=== PATIENT | male | born 1950 | race Caucasian/White ===

== ENCOUNTER 2016-05-16 18:23 | Emergency (ER) | payer OTHER ==
[2016-05-16 19:00] VITALS: TEMP 98.1
--- NOTE | 2016-05-16 21:19 | EDPHY ---
H & P Stated Complaint: fell on porch, hit back of head, back and shoulder pain HPI/ROS: HPI CHIEF COMPLAINT: Fall HISTORY OF PRESENT ILLNESS: This patient is a 66-year-old male, significant past medical history for hypertension, he presents to the emergency room after he slipped on ice on his back deck he landed directly on his back with a head strike. No LOC. This happened approximately 3.5 hours ago. Does complain of a headache. does not have any significant midline cervical spine pain he does complain of back pain across both of his scapulas and midline thoracic spine. Denies LOC denies chest pain denies shortness of breath denies extremity pain. Describes pain as 3/10 headache lies throbbing. No photophobia no nausea no vomiting. Past Medical History: Hypertension Past Surgical History: Multiple orthopedic surgeries including both ankles Social History:Occasional alcohol use, occasional marijuana, denies illicit drugs or tobacco products Family History: noncontributory ROS REVIEW OF SYSTEMS: A comprehensive 10 point review of systems is otherwise negative aside from elements mentioned in the history of present illness. Exam Constitutional appears well nontoxic, GCS 15, triage nursing summary reviewed , vital signs reviewed, awake/alert. Eyes normal conjunctivae and sclera, EOMI, PERRLA. HENT head/neck: No midline cervical spine pain, no step-offs, no crepitus normal inspection, atraumatic, moist mucus membranes, no epistaxis, neck supple / no meningismus, no raccoon eyes. Respiratory clear to auscultation bilaterally, normal breath sounds, no respiratory distress, no wheezing. Cardiovascular rate normal, regular rhythm, no murmur, no edema, distal pulses normal. Gastrointestinal soft, non-tender, no rebound, no guarding, normal bowel sounds, no distension, no pulsatile mass. Genitourinary no CVA tenderness. Musculoskeletal back exam: Tender palpation midline thoracic spine, no step- offs, no crepitus, tender palpation over both scapula, no obvious signs of trauma specifically no swelling, ecchymosis, full range of motion, no calf swelling, no tenderness of extremities, no meningismus, good pulses, neurovascularly intact. Skin pink, warm, & dry, no rash, skin atraumatic. Neurologic awake, alert and oriented x 3, AAOx3, moves all 4 extremities equally, motor intact, sensory intact, CN II-XII intact, normal cerebellar, normal vision, normal speech. Psychiatric normal mood/affect. Heme/Lymph/Immune no lymphadenopathy. Differential Diagnosis: Includes but is not limited to in a particular order, concussion, closed-head injury, intracranial bleed, skull fracture, traumatic subarachnoid, epidural, subdural, cervical spine injury, thoracic spine injury, chest wall injury, rib fracture, pneumothorax Medical Decision Making: patient had a CT scan of his head to rule out significant trauma, CT scan of his cervical spine, chest x-ray two view, thoracic spine x-ray. He does not anything for pain except Motrin. I have ordered him 800 mg ibuprofen. Re-evaluation: CT scan of the head without IV contrast. The results of the study are negative for acute traumatic injury. The study was read by Dr. Pizarro. I viewed the images myself on the PACS system. CT scan of the cervical spine without IV contrast The results of the study are negative for acute traumatic injury. The study was read by Dr. Pizarro. I viewed the images myself on the PACS system. ED x-ray chest two view for trauma negative for acute cardiopulmonary disease. Specifically no trauma. ED x-ray thoracic spine for trauma negative thoracic spine fracture. 2233: I went over this patient's results of his CT scan of the head, and cervical spine his x-ray of his chest an x-ray of his T-spine. These are all unremarkable for significant trauma. I will prescribe him ibuprofen for home. He does understand if he has any worsening symptoms return emergency room this includes worsening headache, neck pain, fever, vomiting. 2237: I have ordered this patient a [place] as he does have worsening crease and pain. X-rays and CTs review. I explained to the patient there is no acute traumatic injury identified. I will prescribe ibuprofen for home, [place] for home, Valium for home. Patient understands these medications can make him sleepy should not combine narcotic or Valium together. Do not drink alcohol with this. He understands return emergency room if there is any worsening symptoms questions or concerns. Source: Patient - Personal History Current Tetanus/Diphtheria Vaccine: Yes Current Tetanus Diphtheria and Acellular Pertussis (TDAP): Yes - Medical/Surgical History Hx Asthma: No Hx Chronic Respiratory Disease: No Hx Diabetes: No Hx Cardiac Disease: Yes Hx Renal Disease: No Hx Cirrhosis: No Hx Alcoholism: No Hx HIV/AIDS: No Hx Splenectomy or Spleen Trauma: No Other PMH: knee sx, ankle sx, eye sx, htn, hyperlipedemia - Social History Smoking Status: Never smoked Constitutional: Initial Vital Signs Temperature (C) 36.7 C 05/16/16 18:58 Heart Rate 70 05/16/16 18:58 Respiratory Rate 18 05/16/16 18:58 Blood Pressure 160/101 H 05/16/16 18:58 O2 Sat (%) 92 05/16/16 18:58 O2 Delivery Mode Room Air Allergies/Adverse Reactions: amoxicillin [Amoxicillin] Allergy (Verified 05/16/16 18:57) epinephrine Allergy (Verified 05/16/16 18:57) hydralazine Allergy (Verified 05/16/16 18:57) prochlorperazine edisylate [From Compazine] Allergy (Verified 05/16/16 18:57) prochlorperazine maleate [From Compazine] Allergy (Verified 05/16/16 18:57) Home Medications: Medication Instructions Recorded Amlodipine Bes/Olmesartan Med 05/16/16 Diazepam [Valium 5 MG (*)] 5 mg PO TID PRN #7 tab 05/16/16 Hydrocodone/APAP 5/325 [[place] 1 - 2 tab PO Q4H PRN #10 tab 05/16/16 5/325] Ibuprofen [Motrin (*)] 800 mg PO Q6-8PRN #7 tab 05/16/16 Medical Decision Making - Data Points Medications Given: Discontinued Medications Ibuprofen (Motrin) 800 mg PO EDNOW ONE Stop: 05/16/16 21:24 Last Admin: 05/16/16 21:38 Dose: 800 mg Departure - Departure Disposition: Home, Routine, Self-Care Clinical Impression: Multiple contusions Fall Qualifiers: Encounter type: initial encounter Qualifier Code: (W19.XXXA) Unspecified fall, initial encounter Condition: Good Instructions: Contusion in Adults (ED) Additional Instructions: 1. Stay well-hydrated. 2. return to the emergency room if he develops any worsening symptoms questions or concerns. 3. Take ibuprofen for pain control. 4. For severe pain you can take the narcotic pain medicine. Also be having muscle spasm can take Valium I do not recommend any combine the [place] and Valium. Do not drink alcohol while taking these medications Referrals: Amadou Arevalo MD [Primary Care Provider] - As per Instructions Prescriptions: Ibuprofen [Motrin (*)] 800 mg PO Q6-8PRN #7 tab Hydrocodone/APAP 5/325 [[place] 5/325] 1 - 2 tab PO Q4H PRN #10 tab PRN Reason: Pain, Moderate Diazepam [Valium 5 MG (*)] 5 mg PO TID PRN #7 tab PRN Reason: Spasms
[2016-05-16] MEDS ORDERED: IBUPROFEN 200 MG TAB PO ONE (21:23)
--- NOTE | 2016-05-16 22:03 | DX ---
PA and Lateral Chest Clinical Indications: Chest pain. History of trauma. Findings: The lungs are clear. Hilar and mediastinal contours are normal. There is no pneumothorax. O sseous structures are intact. The heart size and pulmonary vascularity are normal. Impression: Chest negative for acute posttraumatic sequela.
--- NOTE | 2016-05-16 22:35 | CT ---
CT Scan of the Head (Without Contrast) History: Trauma. Altered mental status in a 66-year-old male following closed head injury. Technique: Axial images were obtained from the base to the vertex with images reconstructed at 1.25 m m thickness. The examination was reviewed on the workstation at bone and soft tissue settings. Dose r eduction techniques were utilized. Findings: There is no midline shift, hydrocephalus, parenchymal or subarachnoid bleeding. No extraaxi al fluid collection is seen. There are no findings to suggest acute cortical ischemia. Bone window ev aluation does not show evidence of a skull fracture or pneumocephalus. The paranasal sinuses and mast oids are normally aerated. There is minimal mucous membrane thickening seen involving the floors of t he maxillary sinuses bilaterally. Impression: Negative noncontrast CT of the head with no intracranial posttraumatic sequela identified . CT Cervical Spine Without Contrast History: Trauma. Neck pain following a fall. Technique: Multislice helical CT through the cervical spine without contrast from the skull base to T 1. Soft tissue and bone evaluation is performed. Sagittal and coronal reconstructions are obtained an d reviewed. Dose reduction techniques were utilized. Findings: Cervical alignment is anatomic. No fracture or dislocation is identified. The relationship between skull base and C1 is normal. The C1-C2 articulation is normal. The odontoid process is normal . The cervical thoracic junction is normal. Soft tissue window evaluation does not show evidence of e pidural or prevertebral hematoma. Multilevel degenerative changes are noted with disk space loss in vertebral body spurring extending f rom C3-C4 to the C6-C7 level. There is also multilevel facet hypertrophy. Impression: 1. Cervical spine negative for fracture. 2. Spinal degenerative changes are noted. A preliminary report was called to Dr. Jason Solomon at 2230 hours in the Emergency Department.
[2016-05-16] MEDS ORDERED: HYDROCODONE/APAP 5/325 TAB PO ONE (22:36)
[2016-05-16] MEDS ORDERED: HYDROCOD/APAP 5/325 PREPACK#6 BTL TAKEHOME ONE (22:36)
--- NOTE | 2016-05-16 22:38 | DX ---
Thoracic spine 3 views including swimmers view. Reason for examination: Pain following trauma. Findings: A fracture is not identified. The bony alignment is normal. The paravertebral soft tissues are negative. Mild multilevel degenerative changes are seen with disk space loss and mild bony spurri ng. Impression: 1. Negative for fracture. 2. Mild thoracic spinal degenerative changes are noted.
[2016-05-16 23:01] VITALS: BP 154/103; PULSE 66; RESP 16; O2SAT 94
== END 2016-05-16 23:00 | disposition home or self-care (01) ==
DX: S20.229A Contusion of unspecified back wall of thorax, initial encounter (principal); I10 Essential (primary) hypertension; W00.0XXA Fall on same level due to ice and snow, initial encounter